=== PATIENT | female | born 1945 | race Caucasian/White ===

== ENCOUNTER 2018-07-28 13:24 | Emergency (ER) | payer OTHER ==
[~2018-07-28] VITALS: Ht 160 cm; Wt 60.3 kg
--- NOTE | 2018-07-28 13:24 | NUR ---
Placed in room 02 . Placed on under ground miner, blood pressure machine and pulse oximeter. To gown for exam. Side rails up. Report given to Sachin PEREZ.
[2018-07-28 13:37] VITALS: BP_SYST 149
--- NOTE | 2018-07-28 13:40 | NUR ---
Patient is awake, alert, and oriented x4. Patient reports dizziness, nausea, and vomiting since this morning. Patient reports she has had an episode 6-8 years ago, followed up with her MD and nothing was done. Horizontal nystagmus noted on assessment.
--- NOTE | 2018-07-28 14:04 | NUR ---
ER Dr. Mar at bedside examining patient.
[2018-07-28] MEDS ORDERED: NACL 0.9% 1,000 ML IV ONE (14:06)
[2018-07-28] MEDS ORDERED: ONDANSETRON HCL 4 MG/2 ML VIAL IVP ONE (14:15)
[2018-07-28 14:26] LABS: BILIRUBIN,URINE NEGATIVE (NEGATIVE); BLOOD, URINE 2+ (NEGATIVE); CLARITY/URINE CLEAR (CLEAR); COLOR,URINE YELLOW (YELLOW); GLUCOSE,URINE NEGATIVE (NEGATIVE); KETONES,URINE NEGATIVE (NEGATIVE); LEUKOCYTE ESTERASE ,URINE 3+ (NEGATIVE); NITRITE, URINE NEGATIVE (NEGATIVE); PH,URINE 6.5 (5.0-8.0); PROTEIN URINE NEGATIVE (NEGATIVE); UROBILINOGEN,URINE 0.2 (0.2-1.0)
[2018-07-28 14:30] LABS: BASOPHILS # (AUTO) 0.1 K/uL (0.0-0.2); BASOPHILS % (AUTO) 0.9 % (0.0-2.0); EOSINOPHILS # (AUTO) 0.1 K/uL (0.0-0.4); EOSINOPHILS % (AUTO) 1.1 % (0.0-4.0); HEMATOCRIT 38.2 % (36-48); LYMPHOCYTES # (AUTO) 1.5 K/uL (1.0-5.5); LYMPHOCYTES % (AUTO) 19.6 % (20.5-51.5); MEAN CORPUSCULAR HEMOGLOBIN 31 pg (27-31); MEAN CORPUSCULAR HGB CONC 34 % (32-36); MEAN CORPUSCULAR VOLUME 90 fL (79.0-98.0); MONOCYTES # (AUTO) 0.4 K/uL (0.0-1.0); MONOCYTES % (AUTO) 5.5 % (1.7-9.3); NEUTROPHILS # (AUTO) 5.5 K/uL (1.8-7.7); NEUTROPHILS % (AUTO) 72.9 % (40.0-70.0); PLATELET COUNT (AUTO) 225 K/uL (130-430); RED BLOOD CELL COUNT(AUTO) 4.24 MIL/uL (4.2-6.2); RED CELL DISTRIBUTION WIDTH 13.2 % (9.0-15.0); WHITE BLOOD COUNT (AUTO) 7.5 K/uL (4.8-10.8)
[2018-07-28 14:30] LABS: BACTERIA,URINE FEW /HPF (None Seen); WBC,URINE 50-80 /HPF (0-3)
[2018-07-28 14:39] LABS: ANION GAP 11 (5-15); CALCIUM 9.1 mg/dL (8.4-11.0); CHLORIDE 100 mmol/L (98-107); CREATININE 0.75 mg/dL (0.55-1.30); GLUCOSE 129 mg/dL (70-99); POTASSIUM 3.2 mmol/L (3.5-5.1); SODIUM SERUM 134 mmol/L (136-145); UREA NITROGEN, BLOOD 22 mg/dL (8-21)
[2018-07-28 14:45] LABS: ALANINE AMINOTRANSFERASE 19 U/L (12-78); ALBUMIN 3.4 g/dL (3.4-4.8); ASPARTATE AMINOTRANSFERASE 17 U/L (10-37); LIPASE 120 U/L (73-393); TOTAL BILIRUBIN 0.3 mg/dL (0.0-1.0)
--- NOTE | 2018-07-28 14:47 | NUR ---
Patient refused CT scan. Dr. Mar made aware.
--- NOTE | 2018-07-28 14:56 | NUR ---
Patient now agrees to CT scan, radiology called.
[2018-07-28] MEDS: cefTRIAXone 1 GM in D5W 50 ML IV ONE ×2 (16:03→16:07)
--- NOTE | 2018-07-28 16:04 | NUR ---
Patient refused IV antibiotics, Dr. Mar made aware.
[2018-07-28] MEDS ORDERED: cefTRIAXone 1 GM VIAL ONE (16:12)
--- NOTE | 2018-07-28 16:19 | NUR ---
Patient given written and verbal discharge instructions and verbalizes understanding. ER MD discussed with patient the results and treatment provided. Patient in stable condition. ID arm band removed. IV catheter removed intact and dressing applied, no active bleeding. Rx of lactulose given. Patient educated on pain management and to follow up with PMD. Pain Scale 0/10. Opportunity for questions provided and answered. Medication side effect fact sheet provided.
[2018-07-28 16:20] VITALS: BP_SYST 134
== END 2018-07-28 16:19 | disposition home or self-care (01) ==
LOC: SED 13:24
DX: N39.0 Urinary tract infection, site not specified (principal); R11.2 Nausea with vomiting, unspecified; I10 Essential (primary) hypertension
CPT/HCPCS: 36415; 70450; 74021; 80053; 81000; 83690; 85025; 87040; 87086; 87186; 96361; 96374; 99284; J0696; J2405; J7030